=== PATIENT | male | born 1935 | race Hispanic/Latino ===

== ENCOUNTER 2024-09-23 09:37 | Day surgery (SDC) | payer OTHER, MEDICARE ==
[~2024-09-23] VITALS: Ht 165.1 cm; Wt 71.2 kg
[2024-09-23] VITALS (13 sets, daily range): BP systolic 110–142; BP diastolic 55–78; PULSE 51–78; RESP 15–16; TEMP 96.6–97.5
[~2024-09-23 09:37] MED LIST: INDOMETHACIN 100 MG SUPP.RECT RC ONE
[2024-09-23] MEDS ORDERED: APIX5TAB PO (10:36)
[2024-09-23] MEDS ORDERED: TAMS-1 PO (10:36)
[2024-09-23] MEDS ORDERED: ATOR40TA69 PO (10:36)
[2024-09-23] MEDS: 0.9%NACL 1000ML 1,000 ML IV ONE (10:37)
[2024-09-23] MEDS ORDERED: IOHEXOL-350 50ML VIAL IV ONE (11:34)
[2024-09-23] MEDS ORDERED: proPOFol 10 MG/ML 20ML VIAL IV ONE (11:49)
[2024-09-23] MEDS ORDERED: ondanSETRON 4MG INJ ONE (11:49)
[2024-09-23] MEDS ORDERED: FENTanyl CITRate PF 50 MCG/1 ML 2ML VIAL ONE (11:49)
[2024-09-23] MEDS ORDERED: SUCCINYLCHOLINE CHLORIDE 20 MG/ML 10 ML VIAL ONE (11:50)
[2024-09-23] MEDS ORDERED: LIDOCAINE PF 100MG/5ML (2%) SYRINGE 5ML ONE (11:50)
[2024-09-23] MEDS: cefTRIAXone 1G VIAL ONE (12:30)
== END 2024-09-23 13:32 | disposition home or self-care (01) ==
LOC: DAH 09:37
PROVIDERS: ATTEND Internal Medicine Gastroenterology
DX: K80.51 Calculus of bile duct without cholangitis or cholecystitis with obstruction (principal); R94.5 Abnormal results of liver function studies; K85.90 Acute pancreatitis without necrosis or infection, unspecified; E80.4 Gilbert syndrome; E78.5 Hyperlipidemia, unspecified; Z90.49 Acquired absence of other specified parts of digestive tract; Z79.01 Long term (current) use of anticoagulants; Z79.899 Other long term (current) drug therapy
CPT/HCPCS: 43264; 74328; 43275; 43273; J0330; J7030 ×2; J2003; J0696; J2704; J2405; Q9967; C1769 ×2; A4215 ×2; A4223; A4657 ×2; A7002; A4222; A4221; A4663; A4606; 74330; J3010; J3490